=== PATIENT | male | born 1995 | race Caucasian/White ===

== ENCOUNTER 2023-12-14 16:06 | Emergency (ER) | payer OTHER ==
[~2023-12-14] VITALS: Ht 177.8 cm; Wt 94.4 kg
[2023-12-14] MEDS ORDERED: TUMS500C PO (16:22)
[2023-12-14] MEDS ORDERED: OMEP10CASR PO (16:22)
[2023-12-14 20:51] LABS: BASO % 0.2 % (0.0-1.0); EOS # 0.1 10^3/uL (0.0-0.5); EOS % 0.7 % (0.0-3.0); HEMATOCRIT 43.5 % (42.0-52.0); HEMOGLOBIN 14.9 g/dl (13.5-17.5); LYMPH # 2.7 10^3/uL (1.5-5.0); LYMPH % 30.1 % (24.0-44.0); MEAN CORPUSCULAR HEMOGLOBIN 29.9 pg (27.0-33.0); MEAN CORPUSCULAR HGB CONC 34.3 g/dl (32.0-36.5); MEAN CORPUSCULAR VOLUME 87.3 fl (80.0-96.0); MONO # 0.7 10^3/uL (0.0-0.8); MONO % 7.9 % (2.0-8.0); NEUTROPHILS # 5.5 10^3/uL (1.5-8.5); PLATELET COUNT, AUTOMATED 212 10^3/uL (150-450); RED BLOOD COUNT 4.98 10^6/uL (4.30-6.10)
[2023-12-14 21:16] LABS: LIPASE 29 U/L (12-53)
[2023-12-14 21:18] LABS: ALBUMIN 4.5 G/DL (3.2-5.2); ALKALINE PHOSPHATASE 94 U/L (46-116); ALT/SGPT 40 U/L (7.0-40); AST/SGOT 31 U/L (<34); BILIRUBIN,DIRECT 0.2 MG/DL (<0.4); BILIRUBIN,TOTAL 0.4 MG/DL (0.3-1.2); CK-MB VALUE MASS < 1.0 NG/ML (<3.6); CPK CREATINE PHOSPHOKINASE 166 U/L (46-171); TOTAL PROTEIN 7.3 G/DL (5.7-8.2)
[2023-12-14 21:47] LABS: D-DIMER QUANT 0.47 ug/mL (<0.5); INR 1.04; PROTHROMBIN TIME 13.3 SECONDS (12.5-14.5)
[2023-12-14 22:44] VITALS: BP 148/98; TEMP 98.3; O2SAT 100
== END 2023-12-14 22:47 | disposition home or self-care (01) ==
LOC: M ED 16:06
DX: K30 Functional dyspepsia (principal); R00.1 Bradycardia, unspecified; I49.8 Other specified cardiac arrhythmias; K21.9 Gastro-esophageal reflux disease without esophagitis; Z79.899 Other long term (current) drug therapy